=== PATIENT | male | born 1970 | race Caucasian/White ===

== ENCOUNTER 2018-11-23 19:45 | Emergency (ER) | payer MEDICAID ==
[~2018-11-23] VITALS: Ht 193 cm; Wt 80.4 kg
[2018-11-23 20:00] VITALS: BP 111/79
--- NOTE | 2018-11-23 21:00 | NUR ---
PT PLACED IN ROOM 16. HAVING LLQ ABDOMINAL PAIN THAT STARTED 2 DAYS AGO. ADMITS TO NAUSEA AND DIARRHEA.
[2018-11-23] MEDS ORDERED: ONDANSETRON 2MG/ML, 2ML ONE (21:15)
[2018-11-23] MEDS ORDERED: SODIUM CHLORIDE FLUSH 10ML SYR IVF ONE (21:30)
[2018-11-23] MEDS ORDERED: ONDANSETRON 2MG/ML, 2ML IVPush ONE (21:30)
[2018-11-23 21:43] LABS: BASOPHILS # (AUTO) 0.05 x10^3/uL (0-0.1); BASOPHILS % (AUTO) 1 % (0-1); EOSINOPHILS # (AUTO) 0.38 x10^3/uL (0-0.4); EOSINOPHILS % (AUTO) 6 % (1-7); LYMPHOCYTES % (AUTO) 37 % (22-44); MD NO; MEAN CORPUSCULAR HEMOGLOBIN 29.2 pg (27.5-34.5); MEAN CORPUSCULAR HGB CONC 31.6 g/dL (33.2-36.2); MEAN CORPUSCULAR VOLUME 92.3 fL (81-97); MEAN PLATELET VOLUME 9.3 fL (7.4-10.4); MONOCYTES # (AUTO) 0.48 x10^3/uL (0.2-0.8); MONOCYTES % (AUTO) 7 % (2-9); NEUTROPHILS # (AUTO) 3.18 x10^3/uL (1.8-6.8); NEUTROPHILS % (AUTO) 49 % (42-75); PLATELET COUNT 244 x10^3/uL (130-400); RED BLOOD COUNT 4.93 x10^6/uL (4.38-5.82)
[2018-11-23 21:52] LABS: ALANINE AMINOTRANSFERASE 26 U/L (12-78); ANION GAP 5 mmol/L (5-15); CALCIUM 8.3 mg/dL (8.5-10.1); CHLORIDE 108 mmol/L (98-107)
[2018-11-23 21:55] LABS: ALKALINE PHOSPHATASE 59 U/L (45-117); BILIRUBIN,TOTAL 0.4 mg/dL (0.2-1.0); TOTAL PROTEIN 7.4 g/dL (6.4-8.2)
--- NOTE | 2018-11-23 22:41 | NUR ---
PT STILL UNABLE TO PROVIDE URINE SAMPLE. VSS. UPDATED ON POC.
[2018-11-23] MEDS ORDERED: OMNIPAQUE 350 MG/ML, 100ML BOTTLE ONE (23:40)
== END 2018-11-23 23:25 | disposition home or self-care (01) ==
LOC: ED 21:13
DX: R10.32 Left lower quadrant pain (principal); R10.31 Right lower quadrant pain; R11.0 Nausea; R19.7 Diarrhea, unspecified
CPT/HCPCS: 36415; 74177; 80053; 83690; 85025; 93005; 96374; 99284; J2405; Q9967